=== PATIENT | female | born 1985 | race Caucasian/White ===

== ENCOUNTER 2020-03-22 16:48 | Inpatient (IN) | payer OTHER ==
[~2020-03-22] VITALS: Ht 180.3 cm; Wt 90.3 kg
[~2020-03-22 16:48] MED LIST: NEXIUM40 MG PO; VITAMIN B-1100 MG/ML IM
[2020-03-22 17:08] LABS: HEMOGLOBIN 11.1 gm/dl (12.3-15.3); RED BLOOD COUNT 4.05 M/UL (4.00-5.10); WHITE BLOOD COUNT 8.7 K/UL (4.5-11.0)
[2020-03-22] MEDS ORDERED: PRENATABS FA T1 EACH PO (18:56)
[2020-03-24 05:02] LABS: HEMOGLOBIN 10.8 gm/dl (12.3-15.3)
[2020-03-24] MEDS ORDERED: DOCUSATE SODIU100 MG PO (10:42)
[2020-03-24] MEDS ORDERED: IBUPROFEN600 MG PO (10:42)
== END 2020-03-24 16:01 | disposition home or self-care (01) | DRG 807 ==
LOC: GENOP 16:48 → OB 16:55
PROVIDERS: Obstetrics & Gynecology; ADMIT Obstetrics & Gynecology
PROC: 0U7C7ZZ Dilation of Cervix, Via Natural or Artificial Opening (ICD-10-PCS; 2020-03-22)
PROC: 10E0XZZ Delivery of Products of Conception, External Approach (ICD-10-PCS; principal; 2020-03-23)
PROC: 10907ZC Drainage of Amniotic Fluid, Therapeutic from Products of Conception, Via Natural or Artificial Opening (ICD-10-PCS; 2020-03-23)
PROC: 3E033VJ Introduction of Other Hormone into Peripheral Vein, Percutaneous Approach (ICD-10-PCS; 2020-03-23)
PROC: 3E0234Z Introduction of Serum, Toxoid and Vaccine into Muscle, Percutaneous Approach (ICD-10-PCS; 2020-03-23)
DX: O69.81X0 Labor and delivery complicated by cord around neck, without compression, not applicable or unspecified (principal); Z37.0 Single live birth; O75.89 Other specified complications of labor and delivery; Z3A.39 39 weeks gestation of pregnancy; Z20.822 Contact with and (suspected) exposure to COVID-19; O99.824 Streptococcus B carrier state complicating childbirth; J45.909 Unspecified asthma, uncomplicated; O99.334 Smoking (tobacco) complicating childbirth; O99.02 Anemia complicating childbirth; D64.89 Other specified anemias; Z90.49 Acquired absence of other specified parts of digestive tract; Z23 Encounter for immunization
CPT/HCPCS: 36415; 81001; 82800; 85014; 85018; 85025; 90471; 90715; J2590; J7120; U0003

== ENCOUNTER → 2021-07-19 | Outpatient (CLI) | payer OTHER ==
[~2021-07-19] MED LIST changes: +DOCUSATE SODIU100 MG PO; +IBUPROFEN600 MG PO; +PRENATABS FA T1 EACH PO
== END ==
LOC: MRI 08:30
DX: K83.8 Other specified diseases of biliary tract (principal)
CPT/HCPCS: 74181